=== PATIENT | male | born 1975 | race Caucasian/White ===

== ENCOUNTER 2016-09-19 06:17 | Emergency (ER) | payer OTHER ==
[~2016-09-19] VITALS: Ht 177.8 cm; Wt 144.6 kg
[2016-09-19 06:19] VITALS: BP 156/88
[2016-09-19] MEDS ORDERED: MOTRIN600 MG PO (06:43)
== END 2016-09-19 08:04 | disposition home or self-care (01) ==
LOC: EME 06:17
DX: M10.9 Gout, unspecified (principal)
CPT/HCPCS: 99281; 99282